=== PATIENT | male | born 1970 | race Caucasian/White ===

== ENCOUNTER → 2017-04-09 | Outpatient (CLI) | payer OTHER ==
--- NOTE | ~2017-04-09 | ECH ---
Cardiac Stress Test Demographics Patient Name TONY ALEXANDER Date of Study 04/09/2017 Patient Number [id number] Visit Number [id number] Date of 1970 Room Number Accession Number [id number] Gender Male Age 46 year(s) Referring King José Luis Gallegos MD Interpreting [facility] Physician Anuel Perez Physician King José Luis Gallegos MD Physician Ordering Physician Yudi Lynch Business Office Representative MD Supervising MD/MLP King José Luis Gallegos MD Stress Cpr Ambulance Driver Nurse Mo Alfred The procedure was explained in detail to the patient. Risks, complications and alternative treatments were reviewed. Written consent was obtained. Medications reviewed with patient prior to procedure. Procedure Type of Study Cardiac Stress Test Procedure Date Date: 04/09/2017 Start: 08:45 AM Indications:Hyperlipidemia, DOT Physical and S/P percutaneous stent placement. Allergies - No known allergies. Conclusions Summary Appropriate hemodynamic response to exercise. No significant ST-T wave changes with exercise. EKG portion is negative for ischemia by diagnostic criteria. The Schmid Treadmill score was 15 . This corresponds to a low risk stress test. Risk Factors - The patient's risk factor(s) include: previous angina/MA and treated dyslipidemia. Stress Protocol Rest ECG Normal sinus rhythm. Resting HR:75 bpmResting BP:114/76 mmHg Stress Peak HR: 152 bpm HR BP Product: [id number] Peak BP: 166/94 mmHg Predicted HR: 172 bpm % of predicted HR: 88 Test Duration: 15:02 min Reason for Termination: Fatigue ECG Normal sinus rhythm. Sinus tachycardia. Signature
== END | disposition home or self-care (01) ==
LOC: CARD 08:25
DX: I25.10 Atherosclerotic heart disease of native coronary artery without angina pectoris (principal); E78.5 Hyperlipidemia, unspecified; Z98.890 Other specified postprocedural states